=== PATIENT | male | born 1975 | race Caucasian/White ===

== ENCOUNTER 2020-11-04 17:43 | Emergency (ER) | payer OTHER ==
[2020-11-04] MEDS ORDERED: MORPHINE SULFATE 4 MG/ML SYRINGE IM STA (18:08)
--- NOTE | 2020-11-04 18:10 | ED ---
General Adult HPI - General Chief complaint: Extremity Injury, Lower Stated complaint: Fall/ankle injury Time Seen by Provider: 11/04/20 17:51 Source: patient, RN notes reviewed, old records reviewed Mode of arrival: wheelchair Limitations: no limitations - History of Present Illness Initial comments: 45-year-old male presents for evaluation of right ankle pain after a fall which occurred 2 hours prior to arrival. Patient had slipped injuring his right ankle. He denies head or neck trauma. No loss conscious. No anticoagulation. This was an isolated injury to the right ankle. States he is able to move his toes but hasn't been able to put weight on the ankle secondary to severe pain. - Related Data Previous Rx's Medication Instructions Recorded HYDROcodone/APAP 5-325MG [[place] 1 tab PO Q6HR PRN #12 tab 11/04/20 5-325] Allergies Allergy/AdvReac Type Severity Reaction Status Date / Time No Known Allergies Allergy Verified 11/04/20 18:34 Review of Systems ROS Statement: Those systems with pertinent positive or pertinent negative responses have been documented in the HPI. ROS Other: All systems not noted in ROS Statement are negative. Past Medical History Past Medical History: No Reported History History of Any Multi-Drug Resistant Organisms: None Reported Additional Past Surgical History / Comment(s): L hand, plastic surgery on face Past Psychological History: No Psychological Hx Reported Smoking Status: Current every day smoker Past Alcohol Use History: None Reported Past Drug Use History: Marijuana General Exam Limitations: no limitations General appearance: alert, in no apparent distress Head exam: Present: atraumatic, normocephalic Eye exam: Present: normal appearance, PERRL ENT exam: Present: normal exam Neck exam: Present: normal inspection, tenderness. Absent: meningismus Respiratory exam: Present: normal lung sounds bilaterally. Absent: respiratory distress, wheezes Cardiovascular Exam: Present: regular rate, normal rhythm GI/Abdominal exam: Present: soft. Absent: distended, tenderness, guarding Extremities exam: Present: joint swelling (Joint swelling at the right ankle, significant tenderness on the medial malleolus. DP and PT pulses are intact. Patient is able to move his toes, unable to move the ankle at all secondary to pain.) Neurological exam: Present: alert, oriented X3 Course Vital Signs 11/04/20 17:45 Temperature 98 F Pulse Rate 88 Respiratory 18 Rate Blood Pressure 154/92 O2 Sat by Pulse 98 Oximetry Procedures - Orthopedic Splinting/Casting Injury #1 Side: right Lower Extremity Injury Location: ankle Lower Extremity Immobilizer: posterior splint, stirrup splint, synthetic pre- padded splint Other Orthopedic Equipment: walker Medical Decision Making - Medical Decision Making 45 yo male with right ankle injury. Patient is externally rotated with soft tissue swelling at the ankle. He has normal sensation in good distal pulses. X-ray performed showing widening of the ankle mortise and subluxation of the talus. I did discuss this with orthopedics Dr. Angulo who recommends internal rotation and splinting. Patient tolerated this very well-appearing stenting. No need for sedation. Distal pulses remain intact. He is placed in a stirrup and posterior mold. He is instructed to elevate and ice the ankle, he will take Motrin for pain and inflammation. Will call orthopedics tomorrow for follow-up. Disposition Clinical Impression: Subluxation of tarsal joint of right foot Disposition: HOME SELF-CARE Instructions (If sedation given, give patient instructions): Ankle Sprain (ED), Ankle Dislocation (ED) Additional Instructions: Please follow up with orthopedics this week. Please take 600 mg of Motrin every 8 hours. Please take [place] for worsening pain. Please keep the foot and ankle elevated, apply ice. Do not bear weight. Prescriptions: HYDROcodone/APAP 5-325MG [[place] 5-325] 1 tab PO Q6HR PRN #12 tab PRN Reason: Pain Is patient prescribed a controlled substance at d/c from ED?: No Referrals: Zaid Kwok MD [Primary Care Provider] - 1-2 days Jony Angulo MD [STAFF PHYSICIAN] - 1-2 days Time of Disposition: 18:51
--- NOTE | 2020-11-04 18:25 | XR ---
EXAMINATION TYPE: XR ankle complete RT DATE OF EXAM: 11/04/2020 COMPARISON: NONE HISTORY: Ankle pain TECHNIQUE: 3 views FINDINGS: There is some lateral subluxation of the talus. There is mild soft tissue swelling around t he ankle joint. I see no displaced fracture. IMPRESSION: Lateral talar subluxation suggestive of ligamentous tear. No definite fracture seen.
[2020-11-04 19:01] VITALS: BP 132/74; PULSE 78; RESP 16; TEMP 97.8
== END 2020-11-04 18:59 | disposition home or self-care (01) ==
LOC: EC 17:43
DX: S93.311A Subluxation of tarsal joint of right foot, initial encounter (principal); F17.200 Nicotine dependence, unspecified, uncomplicated; W01.0XXA Fall on same level from slipping, tripping and stumbling without subsequent striking against object, initial encounter
CPT/HCPCS: 73610; 96372; 29515; 99284; J2270